=== PATIENT | male | born 1965 | race Caucasian/White ===

== ENCOUNTER 2018-04-16 09:17 | Day surgery (SDC) | payer OTHER ==
[2018-04-16] MEDS ORDERED: PROPOFOL 20 ML (11:38)
[2018-04-16] MEDS ORDERED: SUCCINYLCHOLINE CHLORIDE 100 MG/5 ML SYG IV (11:38)
[2018-04-16] MEDS ORDERED: ROCURONIUM 50 MG INJ (11:38)
[2018-04-16] MEDS ORDERED: LIDOCAINE 2% (SDV) 5 ML INJ (11:38)
[2018-04-16] MEDS ORDERED: MEPERIDINE 100 MG INJ (11:38)
[2018-04-16] MEDS ORDERED: GLYCOPYRROLATE 0.4 MG INJ (11:38)
[2018-04-16] MEDS ORDERED: NEOSTIGMINE 3 MG/3 ML SYRINGE (11:38)
[2018-04-16] MEDS ORDERED: ROPIVACAINE 0.5 % 30 ML VIAL ×2 (12:31→14:09)
[2018-04-16] MEDS ORDERED: POLYMYXIN/BACITRACIN 1L IRRIG ×2 (12:31→14:11)
[2018-04-16] MEDS ORDERED: THROMBIN (BOVINE) 5,000 UNIT VIAL TP (12:31)
[2018-04-16] MEDS ORDERED: GELATIN SIZE 100 SPONGE (12:31)
[2018-04-16] MEDS: HEPARIN 1000 UNITS/ML 10 ML INJ (13:54)
[2018-04-16] MEDS: POVIDONE IODINE 10% 28.4 GM OINT (14:15)
[2018-04-16] MEDS: THROMBIN (BOVINE) 5,000 UNIT VIAL TP (14:16)
[2018-04-16] MEDS: POLYMYXIN/BACITRACIN 1L IRRIG IRR (14:17)
[2018-04-16] MEDS: GELATIN SIZE 100 SPONGE (14:17)
[2018-04-16] MEDS: SODIUM CL BACTERIOSTATIC 30 ML INJ (14:19)
[2018-04-16] MEDS ORDERED: hydrALAzine 20 MG INJ IV (14:30)
[2018-04-16] MEDS ORDERED: HYDROmorphONE 1 MG/5 ML IV SYRINGE IV ×3 (14:30)
[2018-04-16] MEDS ORDERED: EPHEDrine SULFATE 50 MG/5 ML SYG IV (14:30)
[2018-04-16] MEDS ORDERED: MIDAZOLAM 1 MG/ML 2 ML INJ IV (14:30)
[2018-04-16] MEDS ORDERED: FENTAnyl 50 MCG/ML VIAL IV ×3 (14:30)
[2018-04-16] MEDS ORDERED: MEPERIDINE 25 MG INJ IV (14:30)
[2018-04-16] MEDS ORDERED: OXYCODONE/ACETAMINOPHEN (5/325) TAB PO ×3 (14:30→15:30)
[2018-04-16] MEDS ORDERED: LABETALOL HCL 20MG INJ IV (14:30)
[2018-04-16] MEDS ORDERED: DIPHENHYDRAMINE 50 MG INJ IV (14:30)
[2018-04-16] MEDS ORDERED: SOD CHLORIDE 0.9% 1,000 ML IV (15:25)
[2018-04-16] MEDS ORDERED: ONDANSETRON 4 MG INJ IV (15:30)
[2018-04-16] MEDS ORDERED: morphine 2 MG INJ IV (15:30)
[2018-04-16] MEDS: ONDANSETRON 4 MG INJ IV (15:44)
[2018-04-16] MEDS: OXYCODONE/ACETAMINOPHEN (5/325) TAB PO (16:01)
[2018-04-16] MEDS: METOCLOPRAMIDE 10 MG INJ IV (16:44)
== END 2018-04-16 17:43 | disposition home or self-care (01) ==
LOC: SDS 09:17
DX: M23.241 Derangement of anterior horn of lateral meniscus due to old tear or injury, right knee (principal); M94.261 Chondromalacia, right knee; M93.261 Osteochondritis dissecans, right knee; E66.9 Obesity, unspecified; Z68.30 Body mass index [BMI] 30.0-30.9, adult
CPT/HCPCS: 29881; 88304; 88311